=== PATIENT | male | born 1950 | race African-American/Black ===

== ENCOUNTER → 2024-09-04 | Day surgery (SDC) | payer OTHER ==
[2024-08-30 09:25] LABS: Absolute Eosinophils 0.1 K/uL (0-0.5); Absolute Lymphocytes (CBC) 1.3 K/uL (0.7-4.9); Absolute Monocytes 0.3 K/uL (0.1-1.3); Absolute Neutrophil 2.2 K/uL (1.8-8.0); Basophils % 0.4 % (0-1.3); Eosinophils % 3.8 % (0-4.4); Hematocrit 36.8 % (39.6-49.0); Hemoglobin 12.4 g/dL (13.6-17.9); Lymphocytes % 32.7 % (15.3-44.8); MCH 30.9 pg (27.0-35.0); MCHC 33.7 g/dL (32.0-36.0); MCV 91.7 fL (80-100); MPV 8.2 fL (7.6-11.3); Monocytes % 7.1 % (3.3-12.3); Nucleated Red Blood Cells % 0.1 % (0-0); Platelets 203 thou/uL (152-406); RBC Red Blood Cell Count 4.02 M/uL (4.33-5.43); Red Cell Distribution Width 14.1 % (12.1-15.2)
[2024-08-30 09:29] LABS: PT Prothrombin Time 12.1 SECONDS (10-13.0); Protime INR 1.06
[2024-08-30 09:41] LABS: Anion Gap 7.6 mEq/L (5.0-15.0); Potassium 3.6 mEq/L (3.5-5.1)
--- NOTE | 2024-08-30 09:54 | RAD REPORT ---
EXAMINATION: TWO VIEW CHEST XR CLINICAL INDICATION: Male, 73 years old. BR MAIN Pre-op pending surgery. Hypertension TECHNIQUE: 2 view radiographs of the chest were performed. COMPARISON: No prior exam. FINDINGS: The lungs are well inflated and clear. No pneumothorax or sizable effusion. The heart is normal in si ze. Mediastinal contours are unremarkable. IMPRESSION: No acute or significant abnormalities.
--- NOTE | 2024-09-03 12:15 | EKG ---
Test Date: 2024-08-30 Test Time: 08:25:57 Deck Cadet: ROSALIE MEASUREMENT RESULTS: Intervals: Rate: 61 CO: 166 QRSD: 72 QT: 432 QTc: 434 Gause: P: 45 CO: 166 QRS: -6 T: 4 INTERPRETIVE STATEMENTS: Normal sinus rhythm Normal ECG No previous ECG available for comparison Electronically Signed On 09-03-24 12:05:34 CDT by Kenn Do
[~2024-09-04] MED LIST: EPHEDRINE SULF 50 MG/ML VIAL ONE; FENTANYL CITR 100 MCG/2 ML ONE; HYDROMORPHONE HCL 1 MG/ML INJ ONE; LIDOCAINE 1% MPF 5 ML VIAL ONE; ONDANSETRON 4 MG/2 ML VIAL ONE; dexAMETHasone 10 MG/ML VIAL ONE; propofoL 200 MG/20 ML VIAL IV ONE
[2024-09-04] MEDS: OXYBUTYNIN ER 5 MG TAB PO ONE (01:20)
[2024-09-04] MEDS: Ringers Lactate 1,000 ML IV ONE (08:45)
[2024-09-04] MEDS: CEFAZOLIN SODIUM 2 GM/VIAL ONE (11:18)
[2024-09-04] MEDS: TRIAMCINOLONE ACETON 40 MG/ML VIAL ONE (11:33)
--- NOTE | 2024-09-04 12:36 | P.OP ---
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 He underwent cystoscopic evaluation which revealed the presence of a perineal urethral stricture, approximately 5-8 Italian in diameter, which prohibited passage by the flexible cystoscope. He was counseled on the recommendation for operative management of the stricture disease followed by cystoscopy to evaluate the nature of any obstruction more proximal. Procedure note: The patient was consented in the preoperative holding area before being transferred to the operative suite where general anesthesia was induced. He was given Ancef 2 g IV antimicrobial prophylaxis, and pneumoboots were provided for DVT prophylaxis. He was placed in the lithotomy position, padded and secured to the table appropriately. His genitalia was prepped with Hibiclens and he was draped in standard fashion. The case was begun using a 22 Italian rigid cystoscope to traverse the urethra and in the perineal urethra, I encountered the area of dense stricture disease. I thus switched the 22 Italian cystoscope for the internal urethrotome, by dilating the meatus and fossa navicularis to 28 Italian and then inserting the urethrotome sheath using a blunt obturator. I then placed the working element along with a 12 degree lens into the sheath and navigated up the urethra until the point of stricture disease was encountered. Initially, I attempted to use of the half-kohler shaped cold knife, but this was too large for the area of stricture narrowing; so I switched for the thinner cold knife which I was able to insert into the strictured opening. I then incised the stricture in a stellate fashion at the 10 o'clock position, the 2 o'clock position, and the 6 o'clock position. I incised through the mucosa into the muscularis tissue until bleeding tissue was encountered. The length of the stricture extended approximately 1.5 to 2 cm into the bulbar urethra; so I had to incise more proximally, taking care to avoid incising in the region of the striated sphincter which was at least 1/2 to 1 cm more proximal to where I was incising. Once the area of stricture narrowing had been incised, because there was a slight degree of mucosal flap that I did not want to propagate, I placed a guidewire under direct vision via the orthotopic mucosal opening and cold it putatively in his bladder. I then dilated the mucosal narrowing and entirety of the urethra from 18 Italian to 24 Italian with relative ease. I then placed the cystoscope over the wire and was able to navigated through the prostatic urethra into his bladder, noting a slight degree of residual stenosis anteriorly about 1 cm distal to the striated sphincter. Once in the bladder, I surveyed the bladder in its entirety, and there were no papillary mucosal lesions, foreign bodies, or stones. The prostatic urethra revealed large lateral lobar hypertrophy with left median to lateral lobar intraurethral intrusion, without distinct median lobar intrusion/intravesical projection. Photographs were taken to document the anatomy in case subsequent treatment was desired. I then left the guidewire in place and remove the cystoscope. I then placed the direct vision urethrotome alongside the wire to the point of persistent obstruction anteriorly proximally in the urethra, and I incised this similarly at the 10:00 and the 2 o'clock position. Once I was able to navigate the 26 Italian urethrotome then passed this point of obstruction through the prostatic urethra and successfully into his bladder, I considered the urethra automate portion complete. I then removed the urethrotome and passed the 22 Italian rigid cystoscope alongside the safety wire into his urethra to the point of incised stricture. I then utilized a endoscopic injection needle and 40 mg Kenalog in 1 cc NS, and I injected 0.5 cc of the concentrated mixture (20 mg/mL) into the 10 o'clock position, the 2 o'clock position, and the 6 o'clock position. I then injected an additional 1 cc of the residual Kenalog from inside the syringe/sterile mixture container around the remainder of the urethra to ensure the entirety of the incised area had been adequately injected. I then removed the cystoscope leaving the wire in place and passed a 22 Italian two-way catheter, made into a zuni tip by using a hole punch, over the wire successfully into his bladder with ease. 25 cc sterile water was placed in the balloon. I then irrigated the bladder to remove a few small clots until the irrigant fluid was clear to light pink. I then connected the Good catheter to a drainage bag, and the patient was taken out of the lithotomy position. He was then awakened from general anesthesia before being transferred to a stretcher and then transferred to the recovery room in good condition. Complications: None Discharge disposition: I would like for him to keep the catheter for at least 10 to 14 days, during which time I will continue him on daily antimicrobial with either Bactrim, preferred, or cephalexin. Subsequently, the catheter may be removed in the office, and we will reassess his LUTS accordingly within the next 2 to 3 months with plan for repeat cystoscopic evaluation at that time to ensure absence of recurrence of the stricture disease.
[2024-09-04 14:43] VITALS: BP 131/73; TEMP 97.2
[2024-09-04 14:50] VITALS: O2SAT 97
[2024-09-04] MEDS: PHENAZOPYRIDINE 100MG TAB PO ONE (16:02)
[2024-09-04] MEDS: HYDROCODONE/APAP 5/325 MG TAB PO PRN (16:03)
== END | disposition home or self-care (01) ==
LOC: OR 08:05
PROVIDERS: ATTEND Urology
PROC: 3E0K83Z Introduction of Anti-inflammatory into Genitourinary Tract, Via Natural or Artificial Opening Endoscopic (ICD-10-PCS; 2024-09-04)
PROC: 0T7D8ZZ Dilation of Urethra, Via Natural or Artificial Opening Endoscopic (ICD-10-PCS; principal; 2024-09-04 09:30)
DX: N35.912 Unspecified bulbous urethral stricture, male (principal); N13.8 Other obstructive and reflux uropathy
CPT/HCPCS: 52276 ×2; 93005; 87088; 85025; 87086; 80048; 36415; 85610; 71046; 52283; J2704; J3301; J2003; J3010; J1100; J2405; J7120; J1171